=== PATIENT | female | born 1960 | race Caucasian/White ===

== ENCOUNTER → 2016-12-23 | Outpatient (CLI) | payer BC, OTHER ==
[~2016-12-23] MED LIST: ABILIFY15 MG PO; ALPRAZOLAM 0.50.5 M1 PO; ALPRAZOLAM2 MG PO; ASPIR 8181 MG PO; ATENOLOL 25 MG25 M1 PO; LISINOPRIL10 MG PO; NABUMETONE 500500 M1 PO; NORCO 5-325 TA1 EACH PO; PREDNISONE 5 MG5 M1 PO; PROVIGIL 200 M200 M1 PO; PROZAC10 MG PO; SUBOXONE 8 MG-1 EAC3 SL; ZOLOFT25 MG PO
== END ==
LOC: CAT 12:08
DX: R51 Headache (principal)

== ENCOUNTER 2017-09-08 16:30 | Inpatient (IN) | payer BC, OTHER ==
[~2017-09-08] VITALS: Ht 172.7 cm; Wt 61.0 kg
--- NOTE | ~2017-09-08 | H ---
[facility] [place] [address] HISTORY AND PHYSICAL Name: ARITAY MACKAY Room #: 428-P ADM IN M.R.#: [id number] Admission: 09/08/17 Attend Phys: Davy Lara MD Discharge: Date of : 56 Report #: [id number] THIS REPORT FOR: //name// CC: Michael Lara DATE OF SERVICE: 09/08/2017 CHIEF COMPLAINT: Chest heaviness. HISTORY OF PRESENT ILLNESS: The patient is a 57-year-old female with history of hypertension and anxiety, was referred to the Emergency Room from PCP's office secondary to chest heaviness. The symptoms started yesterday afternoon, has been on and off, no relationship with any food intake or activity. Has been associated with some dyspnea and mild dizziness. The patient also stated that her blood pressure has been elevated at home. No history of any fever or chills. No cough, expectoration. No nausea or vomiting. The patient had some mild ST elevation or repolarization on her anterior leads. The patient's troponin has been negative so far. PAST MEDICAL HISTORY: Significant for hypertension, history of anxiety, history of COPD. No history of any CVA. No history of any known coronary artery disease. Apparently, the patient had hole in the heart that has healed. PAST SURGICAL HISTORY: Significant for right arm fracture, pin placed, left elbow nerve injury. SOCIAL HISTORY: Smokes half a pack a day. No history of alcohol abuse or illicit drug abuse. FAMILY HISTORY: Significant for coronary artery disease. Father had CAD in age 50. REVIEW OF SYSTEMS: CONSTITUTIONAL: No recent weight loss or weight gain. No fever or chills. EYES: No change in vision. THROAT: Denies any sore throat. CARDIOVASCULAR: As above. RESPIRATORY: As above. GASTROINTESTINAL: No nausea or vomiting. GENITOURINARY: No dysuria or hematuria. NEUROLOGIC: No focal numbness or weakness of the extremities. PSYCHIATRIC: No anxiety or depression. ALLERGIES: SHE IS ALLERGIC TO SULFA. [facility] [address] [place] [address] HISTORY AND PHYSICAL Name: TAY CHAPMAN Room #: 428-P [facility] IN ..#: [id number] Admission: 09/08/17 Attend Phys: Davy Lara MD Discharge: Date of : 56 Report #: [id number] HOME MEDICATIONS: Includes atenolol, alprazolam and lisinopril. Please look at the nursing documentation for the dosages. PHYSICAL EXAMINATION: VITAL SIGNS: Reviewed. The patient is awake and alert, not in acute respiratory distress. Blood pressure elevated at 172/100, heart rate is 76 per minute, afebrile. GENERAL: The patient is awake and alert, not in acute respiratory distress. EYES: Pupils equal, reactive to light, nonicteric, conjunctivae. Throat appears normal. NECK: Supple, no JVD, no bruit, no lymphadenopathy. CARDIOVASCULAR SYSTEM: S1, S2, negative S3, no murmur. CHEST: Bilateral air entry present. Clear on auscultation. ABDOMEN: Soft, bowel sounds present, no mass, no organomegaly, no tenderness. PERIPHERY: No pedal edema. No calf tenderness. Dorsalis pedis 1+. NEUROLOGICAL: No gross motor or sensory deficit. LABORATORY DATA: Reviewed. White count is 5.1. Normal hemoglobin, hematocrit and platelets. BUN and creatinine are within normal limit. Troponin is less than 0.04. TSH is pending. Chest x-ray showed no acute abnormality. There is mild scoliosis. EKG showed mild ST segment elevation in anterior lead sinus rhythm. No significant ST segment or T-wave changes. ASSESSMENT AND PLAN: 1. Chest heaviness. The patient does have multiple risk factors for coronary artery disease. The patient will be admitted to telemetry. We will do serial troponin. We will check her lipids in the morning. We will consult Cardiology. We will obtain echocardiogram and stress test in the morning if troponins are negative. 2. Hypertension. The patient will be continued on lisinopril. We will also order some p.r.n. hydralazine. Her blood pressure is still uncontrolled. We might consider adding a beta spenser. 3. Deep venous thrombosis prophylaxis. The patient will be on Lovenox for deep venous thrombosis prophylaxis. 4. Tobaccoism. The patient has been strongly advised to stop smoking. 5. History of chronic obstructive pulmonary disease, stable. Treatment plan has been explained to the patient in detail. <ELECTRONICALLY SIGNED> By: Davy Lara MD 09/09/17 1320 1853 [id number] Davy Lara MD /nt
--- NOTE | ~2017-09-08 | CATHLAB ---
[facility] [address] [place] [address] INVASIVE PROCEDURE REPORT Name: TAY CHAPMAN Room #: 428-P DIS IN M.R.#: [id number] Admission: 09/08/17 Attend Phys: Popeye Talbot Discharge: 09/10/17 Date of : 56 Date of Service: 09/11/17 0940 Report #: [id number] THIS REPORT FOR: //name// APPROVED REPORT Study performed: 09/10/2017 12:33:02 Patient Details Patient Status: In-Patient Room #: 428 The patient is a 57 year-old female Event Personnel Joe Escamilla Service Superintendent, Irina Pressley RN RN, Mili Zarate RTR, ARCHIE Riojas, Cassie Dupree Monitor Procedures Performed Art Access - R femoral artery* 75915 Initial Mod Sed Same Phys/QHP Gr5y 465186 Left Heart Cath w/or w/o Coronaries Hemostasis with Manual pressure, supervision of conscious sedation Indication Chest pain Risk Factors Family History, Chronic Lung DiseaseHypercholesterolemia, Hypertension, Tobacco History () Procedure Narrative The Right Groin^ was infiltrated with 1% Lidocaine subcutaneous anesthesia. A PINNACLE 4FR Sheath #[id number] sheath was inserted into the RFA^. Coronary angiography was performed using coronary diagnostic catheters. The right coronary system was accessed and visualized with a JR4 catheter. The left coronary system was accessed and visualized with a JL4 catheter. The left ventricle was accessed and visualized with a Pigtail catheter. Left ventricular/Aortic Valve gradient assessed via catheter pullback. Hemostasis was obtained with manual pressure following sheath removal without any complications. The patient tolerated the procedure well and there were no complications associated with the procedure. There was no hematoma. Intraoperative Conscious Sedation Sedation start time: 13:12 Case end Time: 13:24 Versed 3 mg [facility] [address] [place] [address] INVASIVE PROCEDURE REPORT Name: TAY CHAPMAN Room #: 428-P [facility] IN ..#: [id number] Admission: 09/08/17 Attend Phys: Popeye Talbot Discharge: 09/10/17 Date of : 56 Date of Service: 09/11/17 0940 Report #: [id number] Fluoro Time: 1.51 minutes Dose: DAP 1112.60 cGycm2 158 mGy Contrast Type and Amount: Omnipaque 40 ml Coronary Angiography The patient's coronary anatomy is right dominant. Diagnostic Cath Left Main Normal origin small to moderate diameter bifurcates left circumflex left anterior descending pre-of high-grade disease LAD Small-caliber type II vessel which courses in the anterior interventricular sulcus giving rise to septal and diagonal branches. In the distal centimeter to centimeter and a half there appears to be a hinge point with a focal lesion. The vessel is under half a millimeter in diameter at this location. Diagonal 1 Small-caliber vessel coursing seeing along the anterior and anterolateral wall remaining is a bifurcating vessel free of high-grade disease Circumflex Small-caliber vessel which has an early bifurcation as to lateral wall branches which are free of high-grade disease OM1 Small-caliber without obstructive lesions noted OM2 Smaller caliber without obstructive lesions noted Right Coronary Moderate to large caliber vessel of normal origin given aggressive very small RV marginal branch. Then continues posteriorly were posterior descending artery and 2 posterior wall branch and a large posterior lateral wall branch arises all of which are free of high-grade disease R PDA Small-caliber vessel without significant stenotic lesions noted Left Ventriculography Left Ventriculography was not performed. Hemodynamics The aortic pressure is 152/104 mmHg with a mean of 123 mmHg. The left ventricular pressure is 173/10 mmHg with a mean of mmHg. The left ventricular end diastolic pressure is 24 mmHg. Conclusion 1. Coronary disease consisting of base distal LAD lesion in a very small diameter terminal portion of the LAD 2. Normal hemodynamics [facility] [address] [place] [address] INVASIVE PROCEDURE REPORT Name: TAY CHAPMAN Room #: 428-P DIS IN M.R.#: [id number] Admission: 09/08/17 Attend Phys: Popeye Talbot Discharge: 09/10/17 Date of : 56 Date of Service: 09/11/17 0940 Report #: [id number] Recommendations Smoking Cessation Cardiac Risk Reduction Program Aggressive Medical Therapy <ELECTRONICALLY SIGNED> By: Joe Escamilla MD 09/11/17939 9 9 Joe Escamilla MD /INF
--- NOTE | ~2017-09-08 | 2DMMODE ---
[facility] [address] [place] [address] 2 D/M-MODE ECHOCARDIOGRAM Name: TAY CHAPMAN Room #: 428-P ADM IN M.R.#: [id number] Admission: 09/08/17 Attend Phys: Popeye Talbot Discharge: Date of : 56 Date of Service: 09/09/17 0933 Report #: [id number] THIS REPORT FOR: //name// APPROVED REPORT Study performed: 09/09/2017 08:53:28 EXAM: Comprehensive 2D, Doppler, and color-flow Echocardiogram Patient Location: Echo lab Room #: 428 Status: routine BSA: 1.72 HR: 69 bpm BP: 127/93 mmHg Rhythm: NSR Other Information Study Quality: Good Indications Chest pressure, dizziness, edema, HTN, COPD 2D Dimensions RVDd: 32.50 mm LVEF(%): 70.29 (>50%) IVSd: 11.76 (7-11mm) LVOT Diam: 20.24 (18-24mm) LVDd: 37.76 mm PWd: 9.26 (7-11mm) LVDs: 23.01 (25-40mm) Aortic Root: 33.87 mm Barron's LVEF: 70.29 % Volumes Left Atrial Volume (Systole) Single Plane 4CH: 37.61 mL Single Plane 2CH: 39.41 mL LA ESV Index: 24.00 mL/m2 Aortic Valve AoV Peak Jas.: 1.09 m/s AO Peak Gr.: 4.74 mmHg LVOT Max P.62 mmHg LVOT Max V: 0.81 m/s JARRELL Vmax: 2.39 cm2 Mitral Valve E/A Ratio: 0.8 MV Decel. Time: 306.63 ms [facility] [place] [address] 2 D/M-MODE ECHOCARDIOGRAM Name: TAY CHAPMAN Room #: 428-[facility] IN .R.#: [id number] Admission: 09/08/17 Attend Phys: Popeye Talbot Discharge: Date of : 56 Date of Service: 09/09/17 0933 Report #: [id number] MV E Max Jas.: 0.54 m/s MV A Jas.: 0.69 m/s MV PHT: 88.92 ms IVRT: 101.50 ms Pulmonary Valve PV Peak Jas.: 0.72 m/s PV Peak Gr.: 2.10 mmHg Pulmonary Vein P Vein S: 0.53 m/s P Vein D: 0.32 m/s P Vein S/D Ratio: 1.66 Tricuspid Valve TR Peak Jas.: 2.06 m/s RAP Estimate: 5.00 mmHg TR Peak Gr.: 16.96 mmHg PA Pressure: 22.00 mmHg Left Ventricle The left ventricle is normal size. There is normal LV segmental wall motion. There is normal left ventricular wall thickness. The left ventricular systolic function is normal. LVEF is 60-65%. Mild diastolic dysfunction is present (impaired relaxation pattern). Right Ventricle The right ventricle is normal size. The right ventricular systolic function is normal. Atria The left atrium size is normal. The right atrium size is normal. Aortic Valve Aortic valve leaflets are mildly thickened. Trace aortic regurgitation. There is no aortic valvular stenosis. Mitral Valve The mitral valve is normal in structure. Mild mitral regurgitation. Tricuspid Valve The tricuspid valve is normal in structure. Mild tricuspid regurgitation. Estimated PAP is 25-30mmHg. Pulmonic Valve [facility] [address] [place] [address] 2 D/M-MODE ECHOCARDIOGRAM Name: TAY CHAPMAN Room #: 428-P [facility] IN .R.#: [id number] Admission: 09/08/17 Attend Phys: Popeye Talbot Discharge: Date of : 56 Date of Service: 09/09/17 0933 Report #: [id number] The pulmonary valve is normal in structure. Mild pulmonic regurgitation. Great Vessels The aortic root is normal in size. IVC is normal in size and collapses >50% with inspiration. Pericardium There is no pericardial effusion. <Conclusion> The left ventricle is normal size. LVEF is 60-65%. Aortic valve leaflets are mildly thickened. Trace aortic regurgitation. The mitral valve is normal in structure. Mild mitral regurgitation. The tricuspid valve is normal in structure. Mild tricuspid regurgitation. Estimated PAP is 25-30mmHg. The pulmonary valve is normal in structure. Mild pulmonic regurgitation. There is no pericardial effusion. <ELECTRONICALLY SIGNED> By: Joe Escamilla MD 09/09/17932 2 2 Joe Escamilla MD /INF
--- NOTE | ~2017-09-08 | EKG ---
[address] [facility] [place] [address] ELECTROCARDIOGRAM REPORT Name: TAY CHAPMAN Room #: [facility].#: [id number] Admission: Attend Phys: Discharge: Date of : 56 Report #: [id number] THIS REPORT FOR: //name// [facility] ED Test Date: 2017-09-08 Test Time: 16:38:36 Pat Name: TAY CHAPMAN Department: Room: Gender: F Chief Estimator: CHANDRAKANT : 1960 Requested By: Hillary Kasper Order Number: [id number] MD: Sreedhar Graham Measurements Intervals [place]edar Rate: 76 P: 65 MO: 179 QRS: 61 QRSD: 82 T: 56 QT: 382 QTc: 430 Interpretive Statements Sinus rhythm Minimal ST elevation, anterior leads No previous ECG available for comparison Electronically Signed On 09-08-2017 16:47:16 CDT by Sreedhar Graham [email or web address] <ELECTRONICALLY SIGNED> By: Sreedhar Graham MD 09/08/17 1647 1638 1638 Sreedhar Graham MD /GORDON
[2017-09-08 16:41] VITALS: BP 172/100
[2017-09-08] MEDS ORDERED: ATENOLOL 100MG100 MG PO (16:44)
[2017-09-08 16:53] LABS: ABSOLUTE NEUTROPHILS 3.2 thou/uL (1.4-8.2); BASOPHILS 0.9 % (0.0-2.0); HEMATOCRIT 39.4 % (37.0-47.0); HEMOGLOBIN 13.3 gm/dL (12.0-15.0); LYMPHOCYTES 27.7 % (24.0-44.0); MCH 31.2 pg (26.0-34.0); MCHC 33.8 g/dL (28.0-37.0); MCV 92.4 fL (80.0-100.0); PLATELET COUNT 212 thou/uL (150-400); POLYS 61.4 % (36.0-66.0); RBC 4.26 mil/uL (4.20-5.00); RDW 13.5 % (10.5-14.5); WBC 5.1 thou/uL (4.0-11.0)
[2017-09-08 17:02] LABS: ANION GAP 8 mmol/L (7-16); BUN 17 mg/dL (7-18); CALCIUM 9.1 mg/dL (8.5-10.1); CHLORIDE 104 mmol/L (98-107); CO2 25 mmol/L (21-32); CREATININE 0.7 mg/dL (0.6-1.0); GLUCOSE 98 mg/dL (74-106); POTASSIUM 3.8 mmol/L (3.5-5.1); SODIUM 137 mmol/L (136-145)
[2017-09-08 17:11] LABS: SGOT 26 U/L (15-37); SGPT 33 U/L (30-65); TOTAL BILIRUBIN 0.3 mg/dL (<0.1-1.0); TOTAL PROTEIN 7.6 g/dL (6.4-8.2); TROPONIN-I < 0.04 ng/mL (<0.06)
[2017-09-08 18:08] VITALS: BP 172/100
[2017-09-08 19:15] VITALS: BP 149/94
[2017-09-08 20:20] VITALS: BP 131/88
[2017-09-09 04:22] VITALS: BP 129/88
[2017-09-09 05:25] LABS: CHOLESTEROL 195 mg/dL (<200); HDL CHOLESTEROL 66 mg/dL (>40); LDL CHOLESTEROL 109 mg/dL (<100); TRIGLYCERIDE 101 mg/dL (<150); VLDL 20 mg/dL (<40)
[2017-09-09 05:26] LABS: SERUM ASSESSMENT Clear
[2017-09-09 07:14] VITALS: BP 127/93
[2017-09-09] MEDS ORDERED: LISINOPRIL10 MG PO (14:28)
[2017-09-09] MEDS ORDERED: ADULT LOW DOSE81 MG PO (14:28)
[2017-09-09] MEDS ORDERED: ATENOLOL 25MG T25 MG PO (14:28)
[2017-09-09 15:16] VITALS: BP 139/93
[2017-09-09 20:00] VITALS: BP 130/92
[2017-09-10 04:01] VITALS: BP 124/87
[2017-09-10 08:00] VITALS: BP 127/93
[2017-09-10] MEDS ORDERED: LIPITOR 20 MG T20 M1 PO (14:54)
[2017-09-10 15:29] VITALS: BP 127/93
[2017-09-10 15:36] VITALS: BP 127/93
[2017-09-10 17:19] LABS: URINE BILIRUBIN NEGATIVE (Negative); URINE BLOOD NEGATIVE (Negative); URINE CLARITY CLEAR; URINE COLOR YELLOW; URINE GLUCOSE-RANDOM* NEGATIVE (Negative); URINE KETONES NEGATIVE (Negative); URINE LEUKOCYTES NEGATIVE (Negative); URINE NITRITE NEGATIVE (Negative); URINE PROTEIN (DIPSTICK) NEGATIVE (Negative); URINE SPECIFIC GRAVITY 1.015 (1.005-1.035); URINE UROBILINOGEN 0.2 E.U./dl (0.2-1.0)
== END 2017-09-10 17:10 | disposition home or self-care (01) | DRG 287 ==
LOC: ER 16:30 → 4E 17:41 → EROBS 17:41 → 4E 19:19
PROVIDERS: Internal Medicine; Physician Assistant
DX: R07.89 Other chest pain (principal); I10 Essential (primary) hypertension; J43.9 Emphysema, unspecified; F41.9 Anxiety disorder, unspecified; E78.5 Hyperlipidemia, unspecified; F17.210 Nicotine dependence, cigarettes, uncomplicated; Z87.81 Personal history of (healed) traumatic fracture; Z79.899 Other long term (current) drug therapy; Z88.2 Allergy status to sulfonamides; Z71.6 Tobacco abuse counseling; Z82.49 Family history of ischemic heart disease and other diseases of the circulatory system
CPT/HCPCS: 10183

== ENCOUNTER → 2017-11-17 | Outpatient (CLI) | payer BC, OTHER ==
[~2017-11-17] MED LIST changes: +ADULT LOW DOSE81 MG PO; +ATENOLOL 100MG100 MG PO; +ATENOLOL 25MG T25 MG PO; +LIPITOR 20 MG T20 M1 PO
== END ==
LOC: CAT 10:42
DX: K80.20 Calculus of gallbladder without cholecystitis without obstruction (principal); K92.1 Melena; R10.11 Right upper quadrant pain; R10.12 Left upper quadrant pain

== ENCOUNTER → 2019-06-07 | Outpatient (CLI) | payer BC, OTHER | LOC: MRI 10:13 | DX: M47.22 Other spondylosis with radiculopathy, cervical region (principal); M25.78 Osteophyte, vertebrae; M48.02 Spinal stenosis, cervical region; M50.33 Other cervical disc degeneration, cervicothoracic region ==

== ENCOUNTER 2019-07-28 06:38 | Observation (INO) | payer BC, OTHER ==
[2019-07-21 10:57] LABS: HEMATOCRIT 40.5 % (37.0-47.0); HEMOGLOBIN 13.6 gm/dL (12.0-15.0); MCH 31.2 pg (26.0-34.0); MCHC 33.5 g/dL (28.0-37.0); MCV 93.1 fL (80.0-100.0); PLATELET COUNT 231 thou/uL (150-400); RBC 4.35 mil/uL (4.20-5.00); RDW 14.6 % (10.5-14.5); WBC 5.7 thou/uL (4.0-11.0)
[2019-07-21 11:12] LABS: ALBUMIN 3.3 g/dL (3.4-5.0); CALCIUM 8.8 mg/dL (8.5-10.1); CREATININE 0.6 mg/dL (0.6-1.0); POTASSIUM 4.3 mmol/L (3.5-5.1); TOTAL BILIRUBIN 0.2 mg/dL (<0.1-1.0); TOTAL PROTEIN 7.4 g/dL (6.4-8.2)
[2019-07-21 11:48] LABS: ABSOLUTE NEUTROPHILS 3.6 thou/uL (1.4-8.2); ANISOCYTOSIS 1+; ATYPICAL LYMPHS 1 %
[~2019-07-28] VITALS: Ht 172.7 cm; Wt 61.2 kg
[~2019-07-28 06:38] MED LIST changes: +ADDERALL XR 2525 MG PO; +ANORO ELLIPTA1 EACH INH; +COMBIVENT RESPIM4 GM INH; +HYDROCODON-ACE1 EAC8 PO; +MULTI VITAMIN1 EACH PO; +OMEPRAZOLE40 MG PO; +PROAIR HFA8.5 GM INH
[2019-07-28 07:41] VITALS: BP 138/83
[2019-07-28 13:00] VITALS: BP 120/73
--- NOTE | 2019-07-28 13:26 | O ---
[facility] [place] [address] OPERATIVE REPORT Name: TAY CHAPMAN [id number] Admission: 07/28/19 Attend Phys: Darren Pinto MD Discharge: Date of : 56 Report #: [id number] THIS REPORT FOR: cc: Michael Bryan,Darren Stout MD ~ CC: Darren Bryan DATE OF SERVICE: 07/28/2019 PREOPERATIVE DIAGNOSES: Cervical spinal stenosis, C4-C5 with cervical radiculopathy and myelopathy. POSTOPERATIVE DIAGNOSES: Cervical spinal stenosis C4-C5 with cervical radiculopathy and myelopathy. PROCEDURE PERFORMED: Anterior cervical microdiscectomy C4-C5, anterior cervical interbody fusion C4-C5 with allograft bone and anterior cervical plate C4-C5. The operation was done with a multimodality monitoring, fluoroscopy, microscopic dissection. SURGEON: Darren Pinto M.D. DIRECTOR PATIENT FINANCIAL SERVICES: CELESTINO Velásquez, assisted for the surgery. She assisted with exposure, decompression as well as the closure. INDICATIONS: The patient is a pleasant 59-year-old who developed intractable neck and upper extremity symptoms including bilateral arm weakness and numbness and weakness in her hands. She has significant cervical stenosis at C4-C5 and I recommended an ACDF at that level. She understood the surgery, the risks. She wished to go ahead. DESCRIPTION OF PROCEDURE: Following general endotracheal anesthesia, the patient was positioned supine on the operating room table with the neck in a neutral position. The anterior cervical region was prepped and draped in standard fashion. LILIAN hose and AV impulse boots were applied for DVT prophylaxis. The microscope was draped. Fluoroscopy was draped into the field. Monitoring was established. Ancef 2 grams given less than 1 hour prior to initiation of surgery. Using fluoroscopic guidance, incision was made from the midline around to the right side in a skin crease. I dissected the skin and subcutaneous tissue. I sharply divided the portion of the platysma and then dissected down medial to the sternocleidomastoid and the carotid artery sheath down to the anterior cervical vertebral body, reflected the trachea and [address] [address] OPERATIVE REPORT Name: CHAPMANTAY ALICE Room #: 436-P [facility]..#: [id number] Admission: 07/28/19 Attend Phys: Darren Pinto MD Discharge: Date of : 56 Report #: [id number] esophagus contralaterally and placed an anterior cervical retractor, wedged in the longus colli muscles. I placed 14 mm pins in C4 and C5 and distracted and incised the anterior annulus. I performed discectomy with pituitary rongeurs as well as endplate scrapers. I trimmed away the posterior annulus and then opened the ligament with an arachnoid knife and then widely with 1-2 mm micro Kerrisons. I assured myself that the foramina were open and measured and placed a 6 mm interbody fusion cage, which was packed with allograft bone. I placed an anterior [place] plate with four 14 mm screws, which were then locked. Fluoroscopic films looked excellent. I irrigated copiously, removed the retractors. I obtained hemostasis and I closed the wound in layers with absorbable suture. The skin was closed with 4-0 subcuticular stitch. The operation went very well. <ELECTRONICALLY SIGNED> By: Darren Pinto MD 07/28/19 1326 1105 1206 Darren Pinto MD /nt
--- NOTE | 2019-07-28 13:28 | H ---
[facility] [place] [address] HISTORY AND PHYSICAL Name: TAY CHAPMAN [facility] 436[facility] [id number] Admission: 07/28/19 Attend Phys: Darren Pinto MD Discharge: Date of : 56 Report #: [id number] THIS REPORT FOR: cc: Michael Bryan James A. DO Holladay, Frank P. MD ~ CC: Darren Bryan DATE OF SERVICE: 07/28/2019 HISTORY OF PRESENT ILLNESS: She is a pleasant 59-year-old who is having difficulty with neck pain and bilateral shoulder pain in both of her hands. The problem started about 2 months ago spontaneously. She said that the pain has been severe except for the last few days in which it improved slightly. She has had steroid shots for the problem which helped her some. She recently underwent a left ulnar nerve surgery and did well. She says that her pain again has been severe and a 12/10 in the last few days when it has slightly improved. She does not notice significant unsteadiness with her walking. She does notice weakness in her upper extremities bilaterally as well as pain and numbness in her hands diffusely. She is unable to lift objects if it involves elevating her arms. She cannot open jars. CURRENT MEDICATIONS: Alprazolam, ibuprofen, Voltaren, [place]. ALLERGIES: SULFA. PAST MEDICAL HISTORY: Kidney disease, liver disease. PAST SURGICAL HISTORY: Ulnar nerve release in 2019. FAMILY HISTORY: Cancer, heart disease. SOCIAL HISTORY: Employed at . . Smokes 1 pack per day for 30 years. She does report that she has recently quit smoking. REVIEW OF SYSTEMS: A 12-point review of systems was performed and is noncontributory except that mentioned above. PHYSICAL EXAMINATION: GENERAL: Alert, pleasant, in no acute distress. HEENT: Normocephalic, atraumatic. NECK: Tpqw-nu-zrdongdg tenderness with palpation of the posterior cervical region. SKIN: Warm and dry. [address] [address] HISTORY AND PHYSICAL Name: TAY CHAPMAN Room #: 436-P [facility]#: [id number] Admission: 07/28/19 Attend Phys: Darren Pinto MD Discharge: Date of : 56 Report #: [id number] MUSCULOSKELETAL: Cervical paraspinal muscle bulk is normal, cervical range of motion is restricted, normal range of motion of the upper extremities bilaterally, tenderness over her shoulders and over the deltoid regions bilaterally. EXTREMITIES: No clubbing, cyanosis or edema. NEUROLOGIC: Alert and oriented x 3, normal recent and remote memory, strength is 5/5 in the upper and lower extremities except for both of her hands, which her hand grasp and intrinsic hand muscles were 4/5. Her sensory was intact to light touch in the upper and lower extremities except for diffuse decrease in the distal forearms and hands bilaterally, reflexes were present and symmetric in the upper and lower extremities bilaterally, normal gait. IMAGING: I reviewed her cervical MRI scan from 06/2019. On that study, there is moderately severe cervical spinal stenosis at C4-C5. There are diffuse degenerative changes throughout the cervical spine. She does have moderate neural foraminal narrowing present at C5-C6. ASSESSMENT AND PLAN: I believe her problems at C4-C5 are responsible for a significant portion of her symptoms. The next step should be surgery. I am concerned by her cervical stenosis and the severe nature of her symptoms. My recommendation is for her to undergo an anterior cervical microdiskectomy and fusion at C4-C5. I did discuss this with her and her family. I did outline the risk of injury to the soft tissue structures of the neck. I explained to her that I wanted her to be careful with her activities in such that she would not put herself into a position of falling. She would strongly like to go ahead with surgery. We are going to make the arrangements. <ELECTRONICALLY SIGNED> By: Darren Pinto MD 07/28/19 1328 1439 1529 Darren Pinto MD /nt
--- NOTE | 2019-07-28 18:02 | NUR ---
PT ARRIVED TO FLOOR FROM RR PER BED AT 1150 IN STABLE CONDITION.POST OP ASSESSMENT AND CARE PLAN COMPLETED.ICE CREAM GIVEN PER PT REQUEST AT LUNCH AND WELL TOLERATED.NO VERBAL C/O AT PRESENT.WILL CONTINUE TO MONITOR.
[2019-07-28 19:37] VITALS: BP 99/49
[2019-07-28 19:38] VITALS: BP 99/49
[2019-07-29 02:45] VITALS: BP 115/71
--- NOTE | 2019-07-29 04:37 | NUR ---
ASSUMED PT CARE AT 1900. PT REPORTS PAIN 11/10, PAIN MEDS GIVEN. VSS. DRYING DRY AND INTACT. SLEEPING IN BED STRAIGHT UP FOR COMFORT. IN AND OUT OF SLEEP THROUGHOUT THE SHIFT. PT MENTIONED CONCERNS ABOUT TINGLING/PAIN IN FINGERS NOT IMPROVING LIKE SHE HAD HOPED. ANTICIPATING POSSIBLE DISCHARGE TODAY.
[2019-07-29 09:04] VITALS: BP 111/66
--- NOTE | 2019-07-29 09:08 | NUR ---
ORDERS RECEIVED FOR EVAL AND TREAT. SPOKE WITH Pt WHO STATES SHE HAS ALEADY BEEN UP WITHOUT DIFFICULTY. OBSERVED Pt GET OUT OF BED, STAND AND AMBULATE IN ROOM WITHOUT DIFFICULTY. Pt DECLINING A FORMAL P.T. EVAL BUT APPEARS SAFE FOR HOME TODAY. NURSING AWARE
[2019-07-29] MEDS ORDERED: NORCO 7.5-3251 EACH PO (09:37)
[2019-07-29] MEDS ORDERED: ROBAXIN 750 MG750 MG PO (09:40)
[2019-07-29] MEDS ORDERED: HYDROCODON-ACE1 EAC8 PO (09:47)
[2019-07-29 11:25] VITALS: BP 111/66
--- NOTE | 2019-07-29 11:59 | NUR ---
Assumed pt care at 7am.Pt in bed sound asleep till 8am.Assessment completed. Pt c/o neck pain rated 6/10 and requested for pain med.Hydrocodone po given as ordered with relief.DR Pinto lining closer here.dc order noted.Dc summary compile and reviewed with pt.Rx and dc summary copy given.Saline lock dc'd.Soft c-collar ordered for pt to take home.Pt will be dc home with family whenever arrive for cloth picker.Will continue to monitor.
--- NOTE | 2019-07-29 16:07 | PATH ---
[facility] [address] [place] [address] PATHOLOGY RPT PROCEDURE Name: ARIDANIELA Room #: 436-P [facility] Anders#: [id number] Admission: 07/28/19 Date of : 56 Discharge: 07/29/19 Report #: [id number] Path Case #: [id number] [facility] Accession Number: [id number] . 01 Material submitted: . spinal cord - CERVICAL 4 . 01 Clinical history: . Spinal stenosis cervical region. . 02 Diagnosis: Cervical 4 - 5 disc, discectomy/fusion: - Fragments of nucleus pulposus with neovascularization, history of spinal stenosis. (IUV:pit 07/29/2019) QTP 07/29/2019 1515 Local . 02 Electronically signed: . Alanna Sawyer MD, Pathologist NPI- [id number] . 01 Gross description: . Received in formalin labeled "Daniela Younger, cervical 4-5 disc" is a 2.2 x 0.8 x 0.4 cm aggregate of pink-hoffmann friable soft tissue and bone material. The specimen is submitted in A1 following decalcification. ([facility]; 07/28/2019) [facility] 07/28/2019 1525 Local . 02 Pathologist provided ICD-10: M48.02 . 02 CPT . 531346, 426412 Specimen Comment: A courtesy copy of this report has been sent to [phone] Specimen Comment: Report sent to Performed at: [address], [place], [place] [id number] MD Vasile Pereira MD Phone: [phone] Performed at: [address] [id number] MD Alanna Sawyer MD Phone: [phone]
== END 2019-07-29 12:39 | disposition home or self-care (01) ==
LOC: OR 06:38 → TBA 06:39 → OR 09:45 → 4S 13:21 → ENTRNSPT 07-29 12:20 → 4S 07-29 12:39
PROVIDERS: ADMIT Neurological Surgery
DX: M48.02 Spinal stenosis, cervical region (principal); M54.12 Radiculopathy, cervical region; G99.2 Myelopathy in diseases classified elsewhere; F17.210 Nicotine dependence, cigarettes, uncomplicated
CPT/HCPCS: 50010; 50101; 50402; 50503; 50515; 51687; 51725; 51779; 52266; 53210; 54118; 55106; 56532; 57276; 57410; 57411; 57412; 65130; 70005

== ENCOUNTER → 2019-10-26 | Outpatient (CLI) | payer BC, OTHER ==
[~2019-10-26] MED LIST changes: +NORCO 7.5-3251 EACH PO; +ROBAXIN 750 MG750 MG PO
== END ==
LOC: RAD 09:23
PROVIDERS: ATTEND Neurological Surgery
DX: M50.323 Other cervical disc degeneration at C6-C7 level (principal); M43.12 Spondylolisthesis, cervical region; Z98.1 Arthrodesis status

== ENCOUNTER → 2019-11-03 | Outpatient (CLI) | payer BC, OTHER ==
[2019-11-03 10:18] LABS: CREATININE 0.7 mg/dL (0.6-1.0)
== END ==
LOC: LABMALL 09:35 → MRI 09:35
PROVIDERS: ATTEND Neurological Surgery
DX: M47.22 Other spondylosis with radiculopathy, cervical region (principal); M25.78 Osteophyte, vertebrae

== ENCOUNTER → 2020-01-04 | Outpatient (CLI) | payer BC, OTHER | LOC: RAD 09:47 | PROVIDERS: ATTEND Internal Medicine Rheumatology | DX: K21.9 Gastro-esophageal reflux disease without esophagitis (principal); R47.02 Dysphasia ==

== ENCOUNTER → 2020-01-18 | Outpatient (CLI) | payer BC, OTHER ==
--- NOTE | 2020-01-18 12:11 | 2DMMODE ---
[facility] [place] [address] 2 D/M-MODE ECHOCARDIOGRAM Name: TAY CHAPMAN Room #: REG [facility] Martita#: [id number] Admission: 01/18/20 Attend Phys: Milton Nunez, Discharge: Date of : 56 Report #: [id number] THIS REPORT FOR: cc: Michael Bryan James A. DO Lammoglia, Francisco J. MD ~ APPROVED REPORT Study performed: 01/18/2020 11:21:06 EXAM: Comprehensive 2D, Doppler, and color-flow Echocardiogram Patient Location: Out-Patient Status: routine BSA: 1.72 HR: 79 bpm BP: 122/78 mmHg Rhythm: NSR Other Information Study Quality: Good Indications Scleroderma. Evaluate for PHTN. Hx: HTN, COPD. 2D Dimensions RVDd: 33.59 mm IVSd: 7.99 (7-11mm) LVOT Diam: 19.19 (18-24mm) LVDd: 40.18 mm PWd: 8.34 (7-11mm) Ascending Ao: 23.84 (22-36mm) LVDs: 21.74 (25-40mm) Aortic Root: 31.87 mm Volumes Left Atrial Volume (Systole) Single Plane 4CH: 41.87 mL Single Plane 2CH: 41.81 mL LA ESV Index: 27.00 mL/m2 Aortic Valve AoV Peak Jas.: 1.62 m/s AO Peak Gr.: 10.44 mmHg LVOT Max P.52 mmHg LVOT Max V: 1.37 m/s JARRELL Vmax: 2.45 cm2 [facility] [address] [place] [address] 2 D/M-MODE ECHOCARDIOGRAM Name: TAY CHAPMAN Room #: REG CL [facility]#: [id number] Admission: 01/18/20 Attend Phys: Milton Blackburn Discharge: Date of : 56 Report #: [id number] Mitral Valve E/A Ratio: 0.9 MV Decel. Time: 251.77 ms MV E Max Jas.: 0.67 m/s MV A Jas.: 0.78 m/s MV PHT: 73.01 ms IVRT: 69.20 ms Pulmonary Valve PV Peak Jas.: 1.06 m/s PV Peak Gr.: 4.52 mmHg Pulmonary Vein P Vein S: 0.49 m/s P Vein A: 0.31 m/s P Vein D: 0.50 m/s P Vein S/D Ratio: 0.98 Tricuspid Valve TR Peak Jas.: 3.30 m/s RAP Estimate: 5.00 mmHg TR Peak Gr.: 44.00 mmHg PA Pressure: 49.00 mmHg Left Ventricle The left ventricle is normal size. There is normal LV segmental wall motion. There is normal left ventricular wall thickness. Left ventricular systolic function is normal. LVEF is 60-65%. Mild diastolic dysfunction is present (impaired relaxation pattern). Right Ventricle The right ventricle is normal size. The right ventricular systolic function is normal. Atria The left atrium size is normal. The right atrium size is normal. Aortic Valve The aortic valve is normal in structure. No aortic regurgitation is present. There is no aortic valvular stenosis. Mitral Valve The mitral valve is normal in structure. Trace mitral regurgitation. No evidence of mitral valve stenosis. Tricuspid Valve [facility] [address] [place] [address] 2 D/M-MODE ECHOCARDIOGRAM Name: TAY CHAPMAN Room #: REG [facility]#: [id number] Admission: 01/18/20 Attend Phys: Milton Blackburn Discharge: Date of : 56 Report #: [id number] The tricuspid valve is normal in structure. Mild tricuspid regurgitation. Estimated PAP is 50mmHg. Pulmonic Valve Mild pulmonic regurgitation. Great Vessels The ascending aorta is normal in size. IVC is normal in size and collapses >50% with inspiration. Pericardium There is no pericardial effusion. <Conclusion> The left ventricle is normal size. The left ventricle is normal size. LVEF is 60-65%. The aortic valve is normal in structure. The mitral valve is normal in structure. Trace mitral regurgitation. The tricuspid valve is normal in structure. Mild tricuspid regurgitation. Estimated PAP is 50mmHg. Mild pulmonic regurgitation. There is no pericardial effusion. <ELECTRONICALLY SIGNED> By: Joe Escamilla MD 01/18/20 121 10 10 Joe Escamilla MD /INF
== END ==
LOC: CV 11:08
PROVIDERS: ATTEND Internal Medicine Rheumatology
DX: I08.8 Other rheumatic multiple valve diseases (principal); M34.9 Systemic sclerosis, unspecified; M35.1 Other overlap syndromes

== ENCOUNTER → 2020-05-07 | Outpatient (CLI) | payer BC, OTHER | LOC: CAT 08:13 | PROVIDERS: ATTEND Internal Medicine Rheumatology | DX: I25.10 Atherosclerotic heart disease of native coronary artery without angina pectoris (principal); M41.84 Other forms of scoliosis, thoracic region; K80.80 Other cholelithiasis without obstruction ==

== ENCOUNTER → 2020-09-12 | Outpatient (CLI) | payer BC, OTHER | LOC: CAT 11:56 | PROVIDERS: ATTEND Pediatrics | DX: R91.8 Other nonspecific abnormal finding of lung field (principal); I31.3 Pericardial effusion (noninflammatory); R06.02 Shortness of breath; M47.815 Spondylosis without myelopathy or radiculopathy, thoracolumbar region; I25.10 Atherosclerotic heart disease of native coronary artery without angina pectoris; R06.00 Dyspnea, unspecified ==

== ENCOUNTER → 2020-09-27 | Outpatient (CLI) | payer BC, OTHER ==
--- NOTE | 2020-10-05 18:06 | PATH ---
[facility] [place] [address] PATHOLOGY RPT PROCEDURE Name: DANIELA CHAPMAN Room #: REG RACHEL Anders#: [id number] Admission: 09/27/20 Date of : 56 Discharge: Report #: [id number] Path Case #: [id number] [facility] Accession Number: [id number] . 01 Material submitted: . lymph node - RIGHT AXILLARY LYMPH NODE. Modifiers: right, AXILLARY . 01 Clinician provided ICD-10: R59.0 . 01 Clinical history: . ENLARGED AXILLARY LN US/BIOPSY/LYMPH NODE . 02 Diagnosis: Lymph node, right axillary lymph node, needle core biopsy: - Compatible with a benign reactive lymph node, see comment. (IUV:pit; 10/04/2020) QTP 10/04/2020 1359 Local . 02 Comment: Examination snows a normal amarilis architecture with reactive follicles and scattered rare areas of fibrosis. Definitive Timothy-Mat cells, metastatic carcinoma, granulomata, or markedly atypical enlarged lymphocytes are not identified. Immunophenotypic studies by flow cytometry showed no significant lymphoid immunophenotypic abnormalities detected. To further characterize the lymphoid cells in a tissue architectural context, multiple properly controlled immunohistochemical stains are performed on block A1 and are interpreted as follows: CD20 - Reactive within B-cells in the germinal centers as well as mantle zones CD3 - Reactive within T-cells and interfollicular regions CD5 - Reactive within the T-cells and in the interfollicular regions CD10 - Reactive within B-cells in the germinal centers BCL6 - Reactive within lymphocytes in the germinal centers BCL2 - Germinal centers predominantly non-reactive CD23 - Reactive within the residual follicular dendritic cell mesh work in the germinal centers Cyclin D1 - Non-reactive with the B-cells MUM1 - Reactive within the scattered rare sinus plasma cells CD68 - An occasional macrophage identified PAX5- Reactive within the B cells in the germinal centers Based on the morphology, the immunophenotypic findings as well as the immunohistochemical staining pattern, the findings are most compatible with a benign reactive lymph node. Please note the sample may not be entirely small business representative; correlate clinically and follow up as indicated. . [address] [address] PATHOLOGY RPT PROCEDURE Name: DANIELA CHAPMAN Room #: REG RACHEL Anders#: [id number] Admission: 09/27/20 Date of : 56 Discharge: Report #: [id number] Path Case #: [id number] This case was co-reviewed by Dr. Edu Cash who concurs with my diagnosis. (IUV:pit; 10/04/2020) . 02 Addendum: . Special studies report received from [facility], [address] [place] [address], [address], [place], [address], on case [id number], labeled with their number [id number], dated 09/29/2020. . Flow Cytometry: Hematologic Neoplasia Assessment . Clinical History Lymphadenopathy . Indication for Study Evaluation for lymphadenopathy . Specimen Lymph Node, Right Axillary . Viability 87% (7AAD exclusion) . Interpretation Lymph Node, Right Axillary: No significant lymphoid immunophenotypic abnormalities detected . Comments Hodgkin lymphoma, some large cell lymphomas and some peripheral T-cell lymphomas cannot be categorically excluded by flow cytometric analysis. Correlation with the morphologic findings is recommended. . Populations Analyzed Lymphocytes: 83% B-cells: 49.8%, polytypic/polyclonal sIg light chain pattern T-cells: no significant abnormalities of the markers tested CD4:CD8: 3.3 NK cells: 1.3% Granulocytes: 1% Present CD45 Negative 16% No significant reactivity with the markers tested Events/Debris: (may represent non-hematolymphoid cells, degenerated cells, debris, unlysed red blood cells, etc.) . Morphologic Evaluation A slide was reviewed for quality technician fiberglass purposes only. . Specimen Description [address] [address] PATHOLOGY RPT PROCEDURE Name: DANIELA CHAPMAN Room #: REG RACHEL Anders#: [id number] Admission: 09/27/20 Date of : 56 Discharge: Report #: [id number] Path Case #: [id number] Total Cell Yield: 1.04 X 10 and 6 . Reagent(s) Used CD2, CD3, CD4, CD5, CD7, CD8, CD10, CD11b, CD19, CD20, CD23, CD30, CD38, CD43, CD45, CD56, CD57, FMC-7, HLA-DR, kappa, lambda . at [facility], [employer]. Louis Wilson MD Hematopathologist . . Intended Use Flow cytometry is optimally used to immunophenotypically characterize abnormal populations when they are detected. Negative flow cytometry results do not exclude lymphoma or neoplasia. Possible false negative flow cytometry results may occur in, but are not limited to, the following: neoplastic cells in Hodgkin lymphoma are not typically adequately represented by routine clinical flow cytometry; neoplastic cells may be lost or inadequately represented due to degeneration, sample processing, sampling artifact, or patchy involvement; plasma cells are typically underrepresented by flow cytometry; immature cells/blasts may be underrepresented due to hemodilution; myeloproliferative disorders and low grade myelodysplasia may not have immunophenotypic abnormalities or increased blasts. Correlation with all available clinical, laboratory, and morphologic data is always necessary to assess for the possibility of false negative flow cytometry results and to establish a diagnosis. Each marker in this analysis was used to assess for potential antigenic abnormalities or to evaluate detected abnormalities. . Any image or images that accompany this report are small business representative images only and should not be used to render a diagnosis. . Disclaimer(s) This test was developed and its performance characteristics determined by [employer] [facility]. It has not been cleared or approved by the Food and Drug Administration. . [facility] is a business unit of [employer] a wholly-owned subsidiary of [employer]. . This test was performed at [facility]. at [address], [address] - Field Captain: Ned Le MD. . For inquiries, the physician may contact Lab: [phone] [address] PATHOLOGY RPT PROCEDURE Name: DANIELA CHAPMAN Room #: REG [facility].#: [id number] Admission: 09/27/20 Date of : 56 Discharge: Report #: [id number] Path Case #: [id number] . A complete copy of the report is on file. . Professional services performed by [facility]. at [address], [place] [address]. Technical services performed by [employer], [employer]. at [address], [place] [address]. . (IUV:amj 10/02/2020) AZJ/10/05/2020 Addendum Electronically Signed by Alanna Sawyer MD, Pathologist . 02 Electronically signed: . Alanna Sawyer MD, Pathologist NPI- [id number] . 01 Gross description: . The specimen was received in formalin and RPMI. . Received in formalin labeled "Daniela Chapman and right axillary lymph node". Received are 2 lymph node biopsies ranging from 0.7 and 1.0 cm in length and 0.1 cm in diameter. The specimen is entirely submitted in cassette A1. . Received in RPMI labeled "Aren, 1 Daniela and right axillary lymph node". Received is a lymph node biopsy measuring 1.0 cm in length and 0.1 cm in diameter. The specimen is sent to flow cytometry. (BLJ; 09/27/2020) BLJ/J 09/27/2020 1644 Local . 02 Pathologist provided ICD-10: R59.0 . 02 CPT . 934032, R97113, [id number] Specimen Comment: A courtesy copy of this report has been sent to [phone], [phone] Specimen Comment: [phone], , Specimen Comment: Report sent to ,DR DUENAS, DR MONTES Specimen Comment: / DR HEMPHILL Performed at: [address], [place] [id number] MD James Shrestha MD Phone: [phone] Performed at: [address] [id number] MD Alanna Sawyer MD Phone: [phone]
== END | disposition home or self-care (01) ==
LOC: ULTRA 10:16
PROVIDERS: ATTEND Radiology Diagnostic Radiology
DX: R59.0 Localized enlarged lymph nodes (principal); Z79.899 Other long term (current) drug therapy; Z88.2 Allergy status to sulfonamides

== ENCOUNTER → 2020-12-05 | Outpatient (CLI) | payer BC, OTHER | LOC: CAT 11-26 10:06 | PROVIDERS: ATTEND Pediatrics | DX: J84.89 Other specified interstitial pulmonary diseases (principal); K22.8 Other specified diseases of esophagus; R18.8 Other ascites; L90.5 Scar conditions and fibrosis of skin; M34.9 Systemic sclerosis, unspecified ==

== ENCOUNTER → 2021-01-18 | Outpatient (CLI) | payer BC, OTHER | LOC: CAT 09:04 | PROVIDERS: ATTEND Pediatrics | DX: R91.8 Other nonspecific abnormal finding of lung field (principal); R59.0 Localized enlarged lymph nodes; K80.80 Other cholelithiasis without obstruction; R06.02 Shortness of breath; J84.9 Interstitial pulmonary disease, unspecified; M34.9 Systemic sclerosis, unspecified ==